=== PATIENT | female | born 1970 | race Caucasian/White ===

== ENCOUNTER 2019-04-01 16:45 | Emergency (ER) | payer BC ==
[~2019-04-01] VITALS: Ht 160 cm; Wt 63.5 kg
--- NOTE | 2019-04-01 17:00 | NUR ---
MORA, C/O RIGHT CALF PAIN, PATIENT A/OX4, BREATHING EVEN AND UNLABORED, NO SOB NOTED, NEEDS ATTENDED, ASSISTED VIA WHEELCHAIR.
--- NOTE | 2019-04-01 17:35 | NUR ---
US TECH AT BEDSIDE.
[2019-04-01 19:17] VITALS: BP 138/71
--- NOTE | 2019-04-01 19:17 | NUR ---
Patient discharged to home in stable condition. Written and verbal after care instructions given. Patient verbalizes understanding of instruction.
== END 2019-04-01 19:17 | disposition home or self-care (01) ==
LOC: ER 16:48
DX: M79.661 Pain in right lower leg (principal); Z90.49 Acquired absence of other specified parts of digestive tract
CPT/HCPCS: 76882; 93971-TC

== ENCOUNTER 2023-08-31 04:12 | Emergency (ER) | payer BC ==
[~2023-08-31] VITALS: Ht 157.5 cm; Wt 63.5 kg
[2023-08-31 04:13] VITALS: TEMP 98.6
[2023-08-31 04:51] LABS: BASOPHILS # (AUTO) 0.1 K/uL (0.0-0.2); BASOPHILS % (AUTO) 0.9 % (0.0-2.0); EOSINOPHILS # (AUTO) 0.3 K/uL (0.0-0.7); HEMATOCRIT 40 % (33-45); HEMOGLOBIN 13.8 g/dL (11.5-14.8); LYMPHOCYTES # (AUTO) 3.5 K/uL (0.8-4.8); MEAN CORPUSCULAR HEMOGLOBIN 32 PG (26.0-33.0); MEAN CORPUSCULAR HGB CONC 35 g/dl (31.0-36.0); MEAN CORPUSCULAR VOLUME 93 fL (82-100); MONOCYTES # (AUTO) 0.4 K/uL (0.1-1.30); MONOCYTES % (AUTO) 6.2 % (2.0-12.0); NEUTROPHILS % (AUTO) 40.9 % (43.0-81.0); PLATELET COUNT (AUTO) 240 K/uL (150-450); RED BLOOD CELL COUNT(AUTO) 4.29 MIL/uL (4.0-5.2); RED CELL DISTRIBUTION WIDTH 12.6 % (11.5-15.0); WHITE BLOOD COUNT (AUTO) 7.2 K/uL (4.3-11.0)
[2023-08-31 05:02] LABS: CALCIUM, SERUM 9.3 mg/dL (8.5-10.1); CARBON DIOXIDE 25 mmol/L (21-32); CHLORIDE 105 mmol/L (98-107); CREATININE 0.8 mg/dL (0.6-1.3); GLUCOSE 109 mg/dL (74-106); POTASSIUM 3.6 mmol/L (3.5-5.1); SODIUM SERUM 139 mmol/L (136-145); UREA NITROGEN, BLOOD 11 mg/dL (7-18)
[2023-08-31 05:14] LABS: NT-PRO BNP 91 pg/mL (0-125)
[2023-08-31 05:58] VITALS: BP 122/64; O2SAT 99
== END 2023-08-31 06:00 | disposition home or self-care (01) ==
LOC: ER 04:13
DX: R07.89 Other chest pain (principal); Z90.49 Acquired absence of other specified parts of digestive tract
CPT/HCPCS: 36415; 71045-TC; 80048-TC; 83880; 84484-TC; 85025-TC